=== PATIENT | female | born 1990 | race Caucasian/White ===

== ENCOUNTER 2017-10-02 13:45 | Emergency (ER) | payer OTHER ==
[2017-10-02 14:02] VITALS: BP 109/69
[2017-10-02] MEDS ORDERED: Ibuprofen TAB* 600 MG PO ONE (14:10)
[2017-10-02] MEDS ORDERED: Ketorolac INJ* 60 MG/2 ML VIAL IM ONE (15:01)
[2017-10-02] MEDS ORDERED: Dexamethasone IV* 4 MG/ML 1 ML (4 MG) IM ONE (15:01)
[2017-10-02] MEDS ORDERED: Amoxicillin/Clavulanate TAB* 875 MG PO ONE (15:01)
--- NOTE | 2017-10-02 20:33 | UC ---
Brenda Arnett Thomas, scribed for Rachid English MD on 10/02/17 at 1501 . HPI Febrile Illness - HPI Summary HPI Summary: The patient is a 26 year old female presenting to Urgent Care complaining of fever, sore throat, and right-sided ear pain that began yesterday. The patient s temperature was measured at 103 yesterday. The pain is rated 8/10. The pain is aggravated by swallowing and is alleviated by nothing. The patient has treated the symptoms with nothing prior to arrival. - History of Current Complaint Chief Complaint: UCRespiratory Time Seen by Provider: 10/02/17 14:56 Hx Obtained From: Patient Hx Last Menstrual Period: 09/10/17 Onset/Duration: Started Days Ago - 1, Still Present Timing: Constant Temperature: 101.5 F Current Severity: Severe Pain Intensity: 8 Pain Scale Used: 0-10 Numeric Aggravating Factors: Other: - Swallowing aggravates sore throat Alleviating Factors: Nothing - Allergy/Home Medications Allergies/Adverse Reactions: Allergies Allergy/AdvReac Type Severity Reaction Status Date / Time No Known Allergies Allergy Verified 10/02/17 14:01 Home Medications: Home Medications Phenol-Glycerin [Chloraseptic Max Sore Thr 1.5-33 %] 1 spray PO TID PRN [History Confirmed 10/02/17] PMH/Surg Hx/FS Hx/Imm Hx Previously Healthy: No - Asthma; NEGATIVE: DM - Surgical History Surgical History: None - Family History Known Family History: Positive: Diabetes - Social History Alcohol Use: Occasionally Substance Use Type: None Smoking Status (MU): Light Every Day Tobacco Smoker Amount Used/How Often: few sigarettes a week - Immunization History Most Recent Influenza Vaccination: none Review of Systems Constitutional: Fever ENT: Sore Throat, Ear Ache - right-sided Is Patient Immunocompromised?: No All Other Systems Reviewed And Are Negative: Yes Physical Exam Triage Information Reviewed: Yes Vital Signs: Initial Vital Signs Temp 101.5 F 10/02/17 13:58 Pulse 99 10/02/17 13:58 Resp 16 10/02/17 13:58 BP 109/69 10/02/17 13:58 Pulse Ox 100 10/02/17 13:58 Vital Signs Reviewed: Yes - Additional Comments VITAL SIGNS: Reviewed. GENERAL: Patient is a well-developed and nourished female who is lying comfortable in the stretcher. Patient is not in any acute respiratory distress. HEAD AND FACE: Normocephalic EYES: PERRLA, EOMI x 2. EARS: Hearing grossly intact. Her TM's are normal. MOUTH: She has bilateral pharyngeal erythema. The right tonsil is swollen. There is no retropharyngeal abscess at this time. NECK: Supple, trachea is midline, no adenopathy, no JVD, no carotid bruit. CHEST: Symmetric, no tenderness at palpation LUNGS: Clear to auscultation bilaterally. No wheezing or crackles. CVS: Regular rate and rhythm, S1 and S2 present, no murmurs or gallops appreciated. ABDOMEN: Soft, non-tender. Bowel sounds are normal. No abdominal abnormal pulsations. EXTREMITIES: Full ROM in all major joints, no edema, no cyanosis or clubbing. NEURO: Alert and oriented x 3. No acute neurological deficits. Speech is normal and follows commands. SKIN: Dry and warm Course/Dx - Course Assessment/Plan: The patient is a 26 year old female presenting to Urgent Care complaining of fever, sore throat, and right-sided ear pain that began yesterday. The patients temperature was measured at 103 yesterday. The pain is rated 8/10. The pain is aggravated by swallowing and is alleviated by nothing. The patient has treated the symptoms with nothing prior to arrival. She has bilateral pharyngeal erythema. The right tonsil is swollen. There is no retropharyngeal abscess at this time. Rapid Strep is positive. At urgent care, the patient was given Augmentin, Dexamethasone, ibuprofen, and Toradol. The patient was instructed that if she starts to have difficulty swallowing or she begins drooling, she should immediately go to the ED for more assessment and workup to rule out pharyngeal abscess. The patient is diagnosed with Strep pharyngitis. The patient will be discharged home and instructed to follow up with primary care. The patient is prescribed Augmentin and Ibuprofen. - Febrile Illness Differential Diagnoses: Other: - Pharyngitis, retropharyngeal abscess, flu, URI - Diagnoses Clinic Provider Diagnoses: Strep Pharyngitis Discharge - Discharge Plan Condition: Stable Disposition: HOME Prescriptions: Amoxicillin/Clavulanate TAB* [Augmentin TAB 875*] 875 mg PO BID #20 tab Ibuprofen TAB* [Motrin TAB* 800 MG] 800 mg PO ONCE #30 tab Patient Education Materials: Strep Throat (ED) Referrals: Ashely Mesa MD [Primary Care Provider] - 3 Days Additional Instructions: If you begin to have difficulty swallowing or begin to drool, you need to immediately go to the emergency department. Follow up with your primary care provider in three days. The documentation as recorded by the Brenda cardoso Thomas accurately reflects the service I personally performed and the decisions made by , Rachid English MD.
== END 2017-10-02 15:20 | disposition home or self-care (01) ==
LOC: UCEAST 13:45
DX: J02.0 Streptococcal pharyngitis (principal); H92.01 Otalgia, right ear; F17.210 Nicotine dependence, cigarettes, uncomplicated
CPT/HCPCS: 87651; 96372; 99212; A9270-GY; G0463; J1100; J1885